=== PATIENT | male | born 1985 | race Caucasian/White ===

== ENCOUNTER 2018-02-05 19:27 | Emergency (ER) | payer OTHER | END 2018-02-05 23:26 | disposition home or self-care (01) | LOC: ERS 19:27 | DX: L03.221 Cellulitis of neck (principal); Z79.899 Other long term (current) drug therapy | CPT/HCPCS: 99283 ==

== ENCOUNTER 2019-02-26 20:35 | Emergency (ER) | payer OTHER | END 2019-02-26 21:12 | disposition home or self-care (01) | LOC: SCSER 20:35 | DX: R19.7 Diarrhea, unspecified (principal); R21 Rash and other nonspecific skin eruption | CPT/HCPCS: 99283 ==